=== PATIENT | female | born 1955 ===

== ENCOUNTER 2021-06-14 06:45 | Day surgery (SDC) | payer OTHER ==
[~2021-06-14 06:45] MED LIST: HYDROCHLOROTHIA25 MG PO; LISINOPRIL10 MG PO; PRILOSEC OTC20 MG PO; SIMVAST PO; TOPROL XL25 M1 PO
== END 2021-06-14 15:00 | disposition home or self-care (01) ==
LOC: CIR.AMB 06:45
PROVIDERS: ATTEND Colon & Rectal Surgery
DX: D12.9 Benign neoplasm of anus and anal canal (principal); K64.8 Other hemorrhoids; K64.4 Residual hemorrhoidal skin tags; Z20.822 Contact with and (suspected) exposure to COVID-19